=== PATIENT | female | born 1985 ===

== ENCOUNTER 2016-12-23 00:45 | Emergency (ER) | payer SELFPAY ==
[~2016-12-23] VITALS: Ht 172.7 cm; Wt 57.5 kg
[2016-12-23 01:09] VITALS: Ht 172.7 cm; Wt 57.5 kg
[2016-12-23] MEDS ORDERED: ONDANSETRON 4 MG INJ IM STA (02:00)
[2016-12-23] MEDS ORDERED: ONDA4TAB14 PO (02:40)
[2016-12-23] MEDS ORDERED: CITA20TA11 PO (02:40)
[2016-12-23] MEDS ORDERED: OXYC-209 PO (02:40)
--- NOTE | 2016-12-23 02:43 | ERD ---
ER Documentation Chief Complaint Date/Time DATE: 12/23/16 TIME: 02:38 Chief Complaint RIGHT THORACIC PAIN S/P PREVIOUS INJURY, NAUSEA,VOMITING HPI 31 year old female presents here in the ER for complains of right upper backpain after lifting weights today. Patient was lifting weights, has history of chronic back pain, he stated that she aggravated it. Patient took her Percocet at home for pain with mild relief. Patient describes the pain as throbbing pain, 8/10 scale, worse upon movement. Patient states that she also started control medication and has been having episodes of vomiting. Patient came alone here in emergency department, does not have anybody to drive her home, patient requesting for injection of pain medication here in emergency department. ROS All systems reviewed and are negative except as per history of present illness. Medications Home Meds Reported Medications Ondansetron (Ondansetron Odt) Unknown Strength Tab.rapdis, PO Q6H Y for NAUSEA AND/OR VOMITING, #10 TAB 12/23/16 Citalopram Hydrobromide* (Celexa*) Unknown Strength Tablet, PO DAILY, #30 TAB 12/23/16 Oxycodone HCl/Acetaminophen (Percocet 10-325 mg Tablet) Unknown Strength Tablet , PO, TAB 12/23/16 Allergies Allergies: Coded Allergies: ketorolac (Unverified Adverse Reaction, Unknown, 12/23/16) PMhx/Soc Medical and Surgical Hx: pt denies Medical Hx Hx Psychiatric Problems: Yes (ANXIETY) Hx Miscellaneous Medical Probl: Yes (LOW POTASSIUM, ENDOMETRIOSIS) Hx Alcohol Use: No Hx Substance Use: No Hx Tobacco Use: No Smoking Status: Never smoker FmHx Family History: No coronary disease, No diabetes, No other Physical Exam Vitals Vital Signs Date Time Temp Pulse Resp B/P Pulse Ox O2 Delivery O2 Flow Rate FiO2 12/23/16 01:09 98.8 97 17 112/75 98 Physical Exam GENERAL: The patient is well developed and appropriate for usual state of health, in no apparent distress. CHEST: Clear to auscultation bilaterally. There are no rales, wheezes or rhonchi. HEART: Regular rate and rhythm. No murmurs, clicks, rubs or gallops. No S3 or S4. ABDOMEN: Soft, nontender and nondistended. Good bowel sounds. No rebound or guarding. No gross peritonitis. No gross organomegaly or masses. No Baxter sign or McBurney point tenderness. BACK: No midline or flank tenderness.muscle spasms noted in the right paraspinal aspect of the right upper thoracic spine. EXTREMITIES: Equal pulses bilaterally. There is no peripheral clubbing, cyanosis or edema. No focal swelling or erythema. Full range of motion. Grossly neurovascularly intact. NEURO: Alert and oriented. Cranial nerves 2-12 intact. Motor strength in all 4 extremities with 5/5 strength. Sensation grossly intact. Normal speech and gait. SKIN: There is no apparent rash or petechia. The skin is warm and dry. HEMATOLOGIC AND LYMPHATIC: There is no evidence of excessive bruising or lymphedema. No gross cervical, axillary, or inguinal lymphadenopathy. Results 24 hrs Current Medications Medications (Trade) Dose Ordered Sig/Kvng Route PRN Reason Start Time Stop Time Status Last Admin Dose Admin Ondansetron HCl (Zofran Inj) 4 mg ONCE STAT IM 12/23/16 02:00 12/23/16 02:01 DC 12/23/16 02:17 Zofran was ordered but patient cannotwait for the medicine to be given, patient eloped prior to getting medication. patient already took Percocet at home, is requestingstrong pain medication injection here in emergency department, patient came alone here in emergency department, was told that if somebody will come here to pick her up and drive her home and she will be given pain medication, patient was trying to call her boyfriend, afterwards, she eloped, she cannot be found anymore, she had not done the CT scan of the thoracic Ordered. Patient was contacted, patient just wanted to leave since she cannot get her IM injection of pain medication Patient was advised to return to emergency department if she changes her mind. Procedures/MDM Medical Decision Making: Patient's pain is most likely consistent with a back strain. There is no suspicion for neurovascular compromise. Patient has intact sensation and circulation of the affected extremity and distal extremities. No incontinence, no suspicion for cauda equina syndrome, no saddle anesthesia, no symptoms of any acute bacterial infection, no symptoms of any perirectal abscesses, pilonidal cyst.There is low suspicion for septic arthritis. Patient does not have any fever. No symptoms of any aortic dissection or aortic aneurysm. CT scan of the thoracic spine was ordered butatient eloped prior to having the CT scan done. Disposition: Eloped. Departure Diagnosis: Primary Impression: Back pain Back pain location: thoracic back pain Chronicity: acute Back pain laterality: right Qualified Code: M54.6 - Acute right-sided thoracic back pain Additional Impression: Vomiting Vomiting type: unspecified Vomiting Intractability: unspecified Nausea presence: unspecified Qualified Code: R11.10 - Vomiting, intractability of vomiting not specified, presence of nausea not specified, unspecified vomiting type Condition: OSCAR Greenwood NP Dec 23, 2016 02:43
== END 2016-12-23 02:17 | disposition home or self-care (01) ==
LOC: FTE 00:45
DX: M54.6 Pain in thoracic spine (principal); R11.10 Vomiting, unspecified
CPT/HCPCS: 96372; 99284; J2405